=== PATIENT | female | born 1945 | race Caucasian/White ===

== ENCOUNTER 2017-02-28 09:21 | Inpatient (IN) | payer OTHER ==
[~2017-02-28] VITALS: Ht 157.5 cm; Wt 62.8 kg
[2017-02-28 09:45] LABS: BASOPHIL % 0.3 % (0-2); PLATELET COUNT 237 x10^3mcL (130-400)
[2017-02-28 09:48] LABS: RED CELL DISTRIBUTION WIDTH 16.2 % (11.5-14.5)
[2017-02-28] MEDS ORDERED: LASIX20 MG PO (09:59)
[2017-02-28] MEDS ORDERED: POTASSIUM CHLO10 MEQ PO (10:00)
[2017-02-28] MEDS ORDERED: SYNTHROID0.088 MG PO (10:00)
[2017-02-28] MEDS ORDERED: ASPIR 8181 MG PO (10:00)
[2017-02-28 10:05] LABS: ALKALINE PHOSPHATASE 74 U/L (46-116); ALT/SGPT 38 U/L (14-59); AST/SGOT 28 U/L (15-37); BILIRUBIN TOTAL 0.4 mg/dL (0.20-1.00); CALCIUM 6.1 mg/dL (8.5-10.1); CHLORIDE SERUM 103 mmol/L (98-107); CREATININE SERUM 0.6 mg/dL (0.6-1.0); GLUCOSE SERUM 103 mg/dL (74-106); SODIUM SERUM 144 mmol/L (136-145)
[2017-02-28 10:10] LABS: ALBUMIN 1.7 g/dL (3.4-5.0); TOTAL PROTEIN, SERUM 5.7 g/dL (6.4-8.2)
[2017-02-28 10:11] LABS: POTASSIUM SERUM 2.5 mmol/L (3.5-5.1)
[2017-02-28 10:12] LABS: CARBON DIOXIDE 40.3 mmol/L (21-32)
[2017-02-28 12:01] LABS: PHOSPHOROUS 3.1 mg/dL (2.5-4.9)
[2017-02-28 12:04] LABS: CHOLESTEROL/HDL RATIO 2.3; MAGNESIUM 0.5 mg/dL (1.8-2.4)
[2017-02-28 12:10] LABS: FREE T4 1.41 ng/dL (0.76-1.46); FREE THYROXINE INDEX 2.4 ug/dL (1.4-4.5); T4(THYROXINE) 6.4 ug/dL (4.7-13.3)
[2017-02-28 12:28] LABS: T3 TOTAL 0.47 ng/mL
[2017-02-28 13:23] LABS: microscopic required? YES; urine erythrocyte 1+ (NEGATIVE)
[2017-02-28 13:45] VITALS: Ht 157.5 cm; Wt 62.8 kg
[2017-02-28 14:58] VITALS: BP 133/76
[2017-02-28 17:47] LABS: CALCIUM 6.1 mg/dL (8.5-10.1); CREATININE SERUM 0.7 mg/dL (0.6-1.0); SODIUM SERUM 144 mmol/L (136-145)
[2017-02-28 18:04] LABS: CHLORIDE SERUM 102 mmol/L (98-107); GLUCOSE SERUM 119 mg/dL (74-106)
[2017-02-28 18:08] LABS: POTASSIUM SERUM 2.8 mmol/L (3.5-5.1)
[2017-02-28 18:22] VITALS: BP 111/51
[2017-02-28 21:54] VITALS: BP 113/48
[2017-03-01 06:05] VITALS: BP 120/67
[2017-03-01 06:55] LABS: BASOPHIL % 0.2 % (0-2); PLATELET COUNT 213 x10^3mcL (130-400)
[2017-03-01 07:13] LABS: CARBON DIOXIDE 37.2 mmol/L (21-32); CHLORIDE SERUM 104 mmol/L (98-107); CREATININE SERUM 0.7 mg/dL (0.6-1.0); GLUCOSE SERUM 167 mg/dL (74-106); MAGNESIUM 1.5 mg/dL (1.8-2.4); PHOSPHOROUS 3.9 mg/dL (2.5-4.9); POTASSIUM SERUM 3.6 mmol/L (3.5-5.1); SODIUM SERUM 145 mmol/L (136-145)
[2017-03-01 07:23] LABS: RED CELL DISTRIBUTION WIDTH 16.5 % (11.5-14.5)
[2017-03-01 07:54] LABS: CALCIUM 5.9 mg/dL (8.5-10.1)
[2017-03-01 10:00] VITALS: BP 104/48
[2017-03-01 14:00] VITALS: BP 111/53
[2017-03-01 18:42] VITALS: BP 121/46
[2017-03-01 21:36] VITALS: BP 117/46
[2017-03-02 05:49] VITALS: BP 137/51
[2017-03-02 06:17] LABS: PLATELET COUNT 261 x10^3mcL (130-400)
[2017-03-02 06:31] LABS: CARBON DIOXIDE 35.6 mmol/L (21-32); CHLORIDE SERUM 103 mmol/L (98-107); CREATININE SERUM 0.8 mg/dL (0.6-1.0); GLUCOSE SERUM 129 mg/dL (74-106); MAGNESIUM 1.8 mg/dL (1.8-2.4); PHOSPHOROUS 2.9 mg/dL (2.5-4.9); POTASSIUM SERUM 3.6 mmol/L (3.5-5.1); SODIUM SERUM 134 mmol/L (136-145)
[2017-03-02 06:46] LABS: BASOPHIL % 0 % (0-2); RED CELL DISTRIBUTION WIDTH 16.9 % (11.5-14.5)
[2017-03-02 13:03] VITALS: BP 143/47
[2017-03-02 21:38] VITALS: BP 161/50
[2017-03-03 05:30] VITALS: BP 123/53
[2017-03-03 10:00] VITALS: BP 126/61
[2017-03-03] MEDS ORDERED: FERG PO (13:07)
[2017-03-03] MEDS ORDERED: MONTELUKAST SOD10 M1 PO (13:09)
[2017-03-03] MEDS ORDERED: ALD25 PO (13:10)
[2017-03-03] MEDS ORDERED: LASIX40 MG PO (13:16)
[2017-03-03] MEDS ORDERED: LEVAQUIN750 MG PO (13:29)
[2017-03-03] MEDS ORDERED: CLINDAMYCIN HC300 MG PO (13:29)
[2017-03-03] MEDS ORDERED: LAC PO (13:30)
[2017-03-03 14:19] VITALS: BP 126/61
== END 2017-03-03 15:40 | disposition home or self-care (01) | DRG 177 ==
LOC: ED 09:21 → DU 10:23 → MU 10:23 → DU 13:30 → MU 03-03 11:26
PROVIDERS: Emergency Medicine; ADMIT Family Medicine
DX: J69.0 Pneumonitis due to inhalation of food and vomit (principal); E43 Unspecified severe protein-calorie malnutrition; N17.0 Acute kidney failure with tubular necrosis; D68.9 Coagulation defect, unspecified; R31.9 Hematuria, unspecified; E87.6 Hypokalemia; E83.51 Hypocalcemia; E03.9 Hypothyroidism, unspecified; E83.42 Hypomagnesemia; K76.0 Fatty (change of) liver, not elsewhere classified; D64.9 Anemia, unspecified; F17.210 Nicotine dependence, cigarettes, uncomplicated; Z68.25 Body mass index [BMI] 25.0-25.9, adult; Z85.3 Personal history of malignant neoplasm of breast; Z90.13 Acquired absence of bilateral breasts and nipples; Z98.84 Bariatric surgery status; Z79.82 Long term (current) use of aspirin
CPT/HCPCS: 83880; 84439; 94150; J0132; J0696; J1940; J2920; J3010; J3475; J3480; J3490; J7030; J7620; J7626; Q0092; Q9966

== ENCOUNTER 2017-05-23 07:23 | Emergency (ER) | payer OTHER ==
[~2017-05-23] VITALS: Ht 157.5 cm; Wt 53.1 kg
[~2017-05-23 07:23] MED LIST: ALD25 PO; ASPIR 8181 MG PO; CLINDAMYCIN HC300 MG PO; FERG PO; LAC PO; LASIX20 MG PO; LASIX40 MG PO; LEVAQUIN750 MG PO; MONTELUKAST SOD10 M1 PO; POTASSIUM CHLO10 MEQ PO; SYNTHROID0.088 MG PO
[2017-05-23 08:50] VITALS: BP 127/53
== END 2017-05-23 08:50 | disposition home or self-care (01) ==
LOC: ED 07:23
DX: L03.116 Cellulitis of left lower limb (principal); L03.115 Cellulitis of right lower limb; F17.200 Nicotine dependence, unspecified, uncomplicated; E03.9 Hypothyroidism, unspecified; Z88.0 Allergy status to penicillin; Z88.1 Allergy status to other antibiotic agents; Z88.2 Allergy status to sulfonamides
CPT/HCPCS: J0690

== ENCOUNTER 2017-05-26 05:22 | Emergency (ER) | payer OTHER ==
[2017-05-26 05:48] VITALS: BP 152/57
== END 2017-05-26 05:48 | disposition home or self-care (01) ==
LOC: ED 05:22
DX: L53.9 Erythematous condition, unspecified (principal); L03.116 Cellulitis of left lower limb; L03.115 Cellulitis of right lower limb

== ENCOUNTER 2017-05-29 05:06 | Emergency (ER) | payer OTHER ==
[2017-05-29 05:44] VITALS: BP 124/62
== END 2017-05-29 05:44 | disposition home or self-care (01) ==
LOC: ED 05:06
DX: L03.116 Cellulitis of left lower limb (principal); L03.115 Cellulitis of right lower limb

== ENCOUNTER 2017-07-05 06:54 | Emergency (ER) | payer OTHER ==
[2017-07-05 07:01] VITALS: BP 140/69
== END 2017-07-05 07:45 | disposition home or self-care (01) ==
LOC: ED 06:54
DX: L98.499 Non-pressure chronic ulcer of skin of other sites with unspecified severity (principal); L03.314 Cellulitis of groin; E03.9 Hypothyroidism, unspecified; Z90.49 Acquired absence of other specified parts of digestive tract; Z90.710 Acquired absence of both cervix and uterus; Z88.0 Allergy status to penicillin; Z88.2 Allergy status to sulfonamides; Z88.1 Allergy status to other antibiotic agents
CPT/HCPCS: J1885

== ENCOUNTER 2017-08-07 06:13 | Inpatient (IN) | payer OTHER ==
[~2017-08-07] VITALS: Ht 157.5 cm; Wt 53.3 kg
[2017-08-07 08:32] LABS: BASOPHIL % 0.4 % (0-2); PLATELET COUNT 261 x10^3mcL (130-400)
[2017-08-07 08:42] LABS: UA SPECIFIC GRAVITY 1.025 (1.005-1.035); microscopic required? YES; urine erythrocyte NEGATIVE (NEGATIVE)
[2017-08-07 08:46] LABS: CALCIUM 8.3 mg/dL (8.5-10.1); CARBON DIOXIDE 27.1 mmol/L (21-32); CHLORIDE SERUM 105 mmol/L (98-107); CREATININE SERUM 0.5 mg/dL (0.6-1.0); GLUCOSE SERUM 74 mg/dL (74-106); RED CELL DISTRIBUTION WIDTH 16.1 % (11.5-14.5); SODIUM SERUM 140 mmol/L (136-145)
[2017-08-07 08:54] LABS: ALBUMIN 2.2 g/dL (3.4-5.0); ALKALINE PHOSPHATASE 83 U/L (46-116); ALT/SGPT 24 U/L (14-59); AST/SGOT 14 U/L (15-37); BILIRUBIN TOTAL 0.2 mg/dL (0.20-1.00); C REACTIVE PROTEIN 2.8 mg/dL (<=0.9); TOTAL PROTEIN, SERUM 6.5 g/dL (6.4-8.2)
[2017-08-07 09:08] LABS: T3 TOTAL 0.58 ng/mL
[2017-08-07 09:28] LABS: FREE T4 1.39 ng/dL (0.76-1.46); FREE THYROXINE INDEX 3.4 ug/dL (1.4-4.5); T4(THYROXINE) 9.1 ug/dL (4.7-13.3)
[2017-08-07 09:54] LABS: CK-MB 1.9 ng/mL (0-3.6)
[2017-08-07] MEDS ORDERED: LEVOTHYROXINE0.2 M2 PO (10:26)
[2017-08-07] MEDS ORDERED: FERROUS SULFAT325 M2 PO (10:26)
[2017-08-07] MEDS ORDERED: POTASSIUM CHLO10 MEQ PO (10:26)
[2017-08-07] MEDS ORDERED: FOLBIC RF1 TAB PO (10:27)
[2017-08-07] MEDS ORDERED: FOLGARD1 TAB PO (11:02)
[2017-08-07 11:36] LABS: CHOLESTEROL/HDL RATIO 2.2; MAGNESIUM 1.6 mg/dL (1.8-2.4); PHOSPHOROUS 3.6 mg/dL (2.5-4.9)
[2017-08-07 12:01] LABS: IRON 23 ug/dL (50-170); TOTAL IRON BINDING CAPACITY 223 ug/dL (250-450)
[2017-08-07 12:12] LABS: RED BLOOD CELLS 3.5 M/mm3 (4.10-5.10)
[2017-08-07 12:16] LABS: ERYTHROCYTE SED RATE 47 mm/hr (0-30)
[2017-08-07 13:33] VITALS: BP 154/56
[2017-08-07 14:01] VITALS: BP 162/69
[2017-08-07 17:33] VITALS: BP 157/60
[2017-08-08 05:47] VITALS: BP 137/56
[2017-08-08 06:36] LABS: CALCIUM 7.7 mg/dL (8.5-10.1); CARBON DIOXIDE 28.2 mmol/L (21-32); CHLORIDE SERUM 107 mmol/L (98-107); CREATININE SERUM 0.6 mg/dL (0.6-1.0); GLUCOSE SERUM 84 mg/dL (74-106); MAGNESIUM 1.7 mg/dL (1.8-2.4); PHOSPHOROUS 3.4 mg/dL (2.5-4.9); POTASSIUM SERUM 4.5 mmol/L (3.5-5.1); SODIUM SERUM 140 mmol/L (136-145)
[2017-08-08 06:44] LABS: BASOPHIL % 0.3 % (0-2); PLATELET COUNT 230 x10^3mcL (130-400)
[2017-08-08 06:50] LABS: RED CELL DISTRIBUTION WIDTH 16.3 % (11.5-14.5)
[2017-08-08 09:50] VITALS: BP 150/67
[2017-08-08 13:57] VITALS: BP 153/54
[2017-08-08 17:24] VITALS: BP 169/62
[2017-08-08 21:34] VITALS: BP 145/58
[2017-08-09 05:16] VITALS: BP 152/64
[2017-08-09 09:14] LABS: BASOPHIL % 0.2 % (0-2); PLATELET COUNT 252 x10^3mcL (130-400); RED CELL DISTRIBUTION WIDTH 16.1 % (11.5-14.5)
[2017-08-09 09:23] LABS: CARBON DIOXIDE 30.2 mmol/L (21-32); CHLORIDE SERUM 104 mmol/L (98-107); CREATININE SERUM 0.6 mg/dL (0.6-1.0); GLUCOSE SERUM 98 mg/dL (74-106); MAGNESIUM 1.4 mg/dL (1.8-2.4); POTASSIUM SERUM 3.8 mmol/L (3.5-5.1); SODIUM SERUM 141 mmol/L (136-145)
[2017-08-09 10:00] VITALS: BP 143/61
[2017-08-09] MEDS ORDERED: LAC PO (10:48)
[2017-08-09] MEDS ORDERED: CLEOCIN HCL300 MG PO ×2 (10:49→11:28)
[2017-08-09] MEDS ORDERED: DIFLUCAN150 MG PO (10:50)
[2017-08-09] MEDS ORDERED: CIPRO500 MG PO (11:11)
[2017-08-09] MEDS ORDERED: FERROUS SULFAT324 M1 PO (11:25)
[2017-08-09] MEDS ORDERED: SULFAMETH/TRIME1 TA3 PO (11:52)
[2017-08-09] MEDS ORDERED: BENADRYL ALLERG25 M1 PO (12:00)
[2017-08-09 12:21] VITALS: BP 143/61
== END 2017-08-09 15:14 | disposition home or self-care (01) | DRG 602 ==
LOC: ED 06:13 → DU 10:21
PROVIDERS: Specialist; Student in an Organized Health Care Education/Training Program; ADMIT Family Medicine
DX: L03.315 Cellulitis of perineum (principal); N17.0 Acute kidney failure with tubular necrosis; E43 Unspecified severe protein-calorie malnutrition; B37.3 Candidiasis of vulva and vagina; N76.2 Acute vulvitis; M62.50 Muscle wasting and atrophy, not elsewhere classified, unspecified site; E83.42 Hypomagnesemia; J44.9 Chronic obstructive pulmonary disease, unspecified; D64.9 Anemia, unspecified; E83.51 Hypocalcemia; I34.0 Nonrheumatic mitral (valve) insufficiency; Z68.21 Body mass index [BMI] 21.0-21.9, adult; F17.210 Nicotine dependence, cigarettes, uncomplicated
CPT/HCPCS: 83880; 84439; 90658; J1885; J3475; J3490; J7030; Q0092

== ENCOUNTER 2018-09-26 22:24 | Inpatient (IN) | payer OTHER ==
[~2018-09-26] VITALS: Ht 157.5 cm; Wt 57.6 kg
[~2018-09-26 22:24] MED LIST changes: +BENADRYL ALLERG25 M1 PO; +CIPRO500 MG PO; +CLEOCIN HCL300 MG PO; +DIFLUCAN150 MG PO; +FERROUS SULFAT324 M1 PO; +FERROUS SULFAT325 M2 PO; +FOLBIC RF1 TAB PO; +FOLGARD1 TAB PO; +LEVOTHYROXINE0.2 M2 PO; +SULFAMETH/TRIME1 TA3 PO
[2018-09-26 23:55] LABS: BASOPHIL % 0.2 % (0-2); PLATELET COUNT 262 x10^3mcL (130-400)
[2018-09-27] VITALS (7 sets, daily range): BP systolic 97–138; BP diastolic 32–53
[2018-09-27 00:02] LABS: RED CELL DISTRIBUTION WIDTH 17.6 % (11.5-14.5)
[2018-09-27 00:18] LABS: ALKALINE PHOSPHATASE 140 U/L (46-116); ALT/SGPT 42 U/L (14-59); AST/SGOT 37 U/L (15-37); BILIRUBIN TOTAL 0.4 mg/dL (0.20-1.00); CALCIUM 6.5 mg/dL (8.5-10.1); CARBON DIOXIDE 35.3 mmol/L (21-32); CHLORIDE SERUM 98 mmol/L (98-107); CREATININE SERUM 1.3 mg/dL (0.6-1.0); GLUCOSE SERUM 112 mg/dL (74-106); SODIUM SERUM 140 mmol/L (136-145)
[2018-09-27 00:32] LABS: POTASSIUM SERUM 2.7 mmol/L (3.5-5.1); TOTAL PROTEIN, SERUM 4.8 g/dL (6.4-8.2)
[2018-09-27 17:07] LABS: UA SPECIFIC GRAVITY 1.025 (1.005-1.035); microscopic required? YES; urine erythrocyte 3+ (NEGATIVE)
[2018-09-28 04:37] VITALS: BP 106/46
[2018-09-28 06:29] LABS: BASOPHIL % 0.1 % (0-2); PLATELET COUNT 196 x10^3mcL (130-400)
[2018-09-28 06:40] LABS: CALCIUM 6.1 mg/dL (8.5-10.1); CARBON DIOXIDE 36.9 mmol/L (21-32); CHLORIDE SERUM 103 mmol/L (98-107); CREATININE SERUM 1.1 mg/dL (0.6-1.0); GLUCOSE SERUM 101 mg/dL (74-106); RED CELL DISTRIBUTION WIDTH 17.9 % (11.5-14.5); SODIUM SERUM 143 mmol/L (136-145)
[2018-09-28 07:03] LABS: POTASSIUM SERUM 2.8 mmol/L (3.5-5.1)
[2018-09-28 07:54] VITALS: BP 116/77
[2018-09-28 14:25] VITALS: BP 94/36
[2018-09-28 17:07] VITALS: BP 94/36
[2018-09-28 20:42] VITALS: BP 96/39
[2018-09-29 05:17] VITALS: BP 115/53
[2018-09-29 06:50] LABS: PLATELET COUNT 161 x10^3mcL (130-400)
[2018-09-29 06:56] LABS: BASOPHIL % 0 % (0-2); RED CELL DISTRIBUTION WIDTH 18.1 % (11.5-14.5)
[2018-09-29 07:01] LABS: CALCIUM 6.2 mg/dL (8.5-10.1); CARBON DIOXIDE 37.4 mmol/L (21-32); CHLORIDE SERUM 104 mmol/L (98-107); CREATININE SERUM 1.1 mg/dL (0.6-1.0); GLUCOSE SERUM 89 mg/dL (74-106); POTASSIUM SERUM 4.6 mmol/L (3.5-5.1); SODIUM SERUM 144 mmol/L (136-145)
[2018-09-29 10:53] VITALS: BP 128/50
[2018-09-29 15:54] VITALS: BP 106/51
[2018-09-29 19:17] VITALS: Ht 157.5 cm; Wt 57.6 kg
[2018-09-29 19:20] VITALS: BP 106/55
[2018-09-29 19:35] VITALS: BP 106/55
== END 2018-09-29 20:28 | disposition short-term general hospital (02) | DRG 919 ==
LOC: ED 22:24 → DU 09-27 01:27
PROVIDERS: Emergency Medicine; ADMIT Internal Medicine
DX: T81.31XA Disruption of external operation (surgical) wound, not elsewhere classified, initial encounter (principal); E43 Unspecified severe protein-calorie malnutrition; E87.2 Acidosis; T81.49XA Infection following a procedure, other surgical site, initial encounter; L89.329 Pressure ulcer of left buttock, unspecified stage; L89.319 Pressure ulcer of right buttock, unspecified stage; J44.9 Chronic obstructive pulmonary disease, unspecified; E87.6 Hypokalemia; M19.90 Unspecified osteoarthritis, unspecified site; Z85.3 Personal history of malignant neoplasm of breast; R41.81 Age-related cognitive decline; Z68.20 Body mass index [BMI] 20.0-20.9, adult; Y83.4 Other reconstructive surgery as the cause of abnormal reaction of the patient, or of later complication, without mention of misadventure at the time of the procedure; Y92.009 Unspecified place in unspecified non-institutional (private) residence as the place of occurrence of the external cause
CPT/HCPCS: 83880; 87804; J1644; J1956; J2020; J2270; J2543; J2550; J3370; J3490; J7030; J7040; J7050; J7620; Q0163

== ENCOUNTER 2019-02-23 18:14 | Inpatient (IN) | payer OTHER ==
[~2019-02-23] VITALS: Ht 157.5 cm; Wt 40.0 kg
[2019-02-23 19:18] LABS: PLATELET COUNT 301 x10^3mcL (130-400)
[2019-02-23 19:24] LABS: ALKALINE PHOSPHATASE 148 U/L (46-116); ALT/SGPT 31 U/L (14-59); AST/SGOT 9 U/L (15-37); BILIRUBIN TOTAL 0.3 mg/dL (0.20-1.00); CALCIUM 7.9 mg/dL (8.5-10.1); CARBON DIOXIDE 24.6 mmol/L (21-32); CHLORIDE SERUM 102 mmol/L (98-107); CREATININE SERUM 2.2 mg/dL (0.6-1.0); GLUCOSE SERUM 97 mg/dL (74-106); RED CELL DISTRIBUTION WIDTH 16.5 % (11.5-14.5); SODIUM SERUM 137 mmol/L (136-145); TOTAL PROTEIN, SERUM 7.6 g/dL (6.4-8.2)
[2019-02-23 19:25] LABS: ALBUMIN 2.1 g/dL (3.4-5.0)
[2019-02-23 19:27] LABS: POTASSIUM SERUM 2.1 mmol/L (3.5-5.1)
[2019-02-23 20:45] LABS: MONOCYTE 6 % (0-7); SEGMENTED NEUTROPHILS 90 % (37-75)
[2019-02-23 20:46] LABS: PLATELET MORPHOLOGY PLATELETS NORMAL; rbc morphology (normal/abnorm) ABNORMAL (NORMAL)
[2019-02-23] MEDS ORDERED: FUROSEMIDE20 MG (20:56)
[2019-02-23] MEDS ORDERED: OXYCODONE HYDROC5 M2 (20:57)
[2019-02-23 23:39] VITALS: BP 97/64
[2019-02-24] VITALS (7 sets, daily range): BP systolic 91–126; BP diastolic 34–64; Ht 157.5 cm; Wt 40.0 kg
[2019-02-24 07:04] LABS: CALCIUM 7.4 mg/dL (8.5-10.1); CARBON DIOXIDE 16.8 mmol/L (21-32); CHLORIDE SERUM 108 mmol/L (98-107); GLUCOSE SERUM 80 mg/dL (74-106); SODIUM SERUM 134 mmol/L (136-145)
[2019-02-24 07:27] LABS: PLATELET COUNT 242 x10^3mcL (130-400)
[2019-02-24 07:28] LABS: BASOPHIL % 0 % (0-2); RED CELL DISTRIBUTION WIDTH 16.8 % (11.5-14.5)
[2019-02-24 08:45] LABS: microscopic required? YES; urine erythrocyte 3+ (NEGATIVE)
[2019-02-25 06:05] VITALS: BP 112/44
[2019-02-25 06:24] LABS: ALKALINE PHOSPHATASE 93 U/L (46-116); ALT/SGPT 30 U/L (14-59); AST/SGOT 9 U/L (15-37); BILIRUBIN TOTAL 0.2 mg/dL (0.20-1.00); CALCIUM 6.8 mg/dL (8.5-10.1); CARBON DIOXIDE 19.2 mmol/L (21-32); CHLORIDE SERUM 110 mmol/L (98-107); CREATININE SERUM 1.5 mg/dL (0.6-1.0); GLUCOSE SERUM 91 mg/dL (74-106); MAGNESIUM 1.3 mg/dL (1.8-2.4); PHOSPHOROUS 2.3 mg/dL (2.5-4.9); SODIUM SERUM 142 mmol/L (136-145)
[2019-02-25 06:39] LABS: ALBUMIN 2.1 g/dL (3.4-5.0); TOTAL PROTEIN, SERUM 5.8 g/dL (6.4-8.2)
[2019-02-25 06:40] LABS: POTASSIUM SERUM 2.9 mmol/L (3.5-5.1)
[2019-02-25 07:55] LABS: PLATELET COUNT 195 x10^3mcL (130-400)
[2019-02-25 07:56] LABS: BASOPHIL % 0 % (0-2); RED CELL DISTRIBUTION WIDTH 16.5 % (11.5-14.5)
[2019-02-25 08:46] VITALS: BP 120/46
[2019-02-25 15:00] VITALS: BP 111/37
[2019-02-25 17:25] VITALS: BP 114/56
[2019-02-25 20:12] VITALS: BP 109/39
[2019-02-26 04:05] VITALS: BP 118/40
[2019-02-26 07:04] LABS: ALKALINE PHOSPHATASE 81 U/L (46-116); ALT/SGPT 15 U/L (14-59); AST/SGOT 5 U/L (15-37); CALCIUM 7.4 mg/dL (8.5-10.1); CARBON DIOXIDE 15.2 mmol/L (21-32); CHLORIDE SERUM 114 mmol/L (98-107); CREATININE SERUM 1.1 mg/dL (0.6-1.0); GLUCOSE SERUM 91 mg/dL (74-106); PHOSPHOROUS 1.9 mg/dL (2.5-4.9); POTASSIUM SERUM 3.2 mmol/L (3.5-5.1); SODIUM SERUM 144 mmol/L (136-145); TOTAL PROTEIN, SERUM 6.2 g/dL (6.4-8.2)
[2019-02-26 07:13] LABS: ALBUMIN 2.7 g/dL (3.4-5.0)
[2019-02-26 09:18] VITALS: BP 129/44
[2019-02-26 14:01] VITALS: BP 125/49
[2019-02-26 17:38] VITALS: BP 110/45
[2019-02-26 19:35] VITALS: BP 106/47
[2019-02-27 04:39] VITALS: BP 125/50
[2019-02-27 06:50] LABS: CARBON DIOXIDE 23.2 mmol/L (21-32); CHLORIDE SERUM 110 mmol/L (98-107); CREATININE SERUM 1.1 mg/dL (0.6-1.0); GLUCOSE SERUM 92 mg/dL (74-106); POTASSIUM SERUM 3.7 mmol/L (3.5-5.1); SODIUM SERUM 141 mmol/L (136-145)
[2019-02-27 08:00] LABS: BASOPHIL % 0.2 % (0-2); PLATELET COUNT 202 x10^3mcL (130-400)
[2019-02-27 08:25] LABS: RED CELL DISTRIBUTION WIDTH 15.4 % (11.5-14.5)
[2019-02-27 09:29] VITALS: BP 115/61
[2019-02-27 14:03] VITALS: BP 115/61
[2019-02-27 14:27] VITALS: BP 102/39
[2019-02-27 18:25] VITALS: BP 106/38
[2019-02-27 20:34] VITALS: BP 132/51
[2019-02-28 05:40] VITALS: BP 120/50
[2019-02-28 07:36] LABS: ALKALINE PHOSPHATASE 75 U/L (46-116); ALT/SGPT 13 U/L (14-59); AST/SGOT 4 U/L (15-37); CALCIUM 7.1 mg/dL (8.5-10.1); CARBON DIOXIDE 21.8 mmol/L (21-32); CHLORIDE SERUM 111 mmol/L (98-107); GLUCOSE SERUM 77 mg/dL (74-106); MAGNESIUM 1.5 mg/dL (1.8-2.4); PHOSPHOROUS 1.9 mg/dL (2.5-4.9); POTASSIUM SERUM 4.1 mmol/L (3.5-5.1); SODIUM SERUM 141 mmol/L (136-145)
[2019-02-28 07:39] LABS: ALBUMIN 2.2 g/dL (3.4-5.0)
[2019-02-28 08:43] VITALS: BP 112/50
[2019-02-28 09:03] LABS: BASOPHIL % 0.1 % (0-2); PLATELET COUNT 200 x10^3mcL (130-400)
[2019-02-28 09:06] LABS: RED CELL DISTRIBUTION WIDTH 16.6 % (11.5-14.5)
[2019-02-28 12:44] VITALS: BP 116/44
[2019-02-28 20:36] VITALS: BP 112/41
[2019-03-01 05:06] VITALS: BP 116/37
[2019-03-01 06:16] LABS: BASOPHIL % 0.3 % (0-2); PLATELET COUNT 194 x10^3mcL (130-400)
[2019-03-01 07:20] LABS: ALBUMIN 2.2 g/dL (3.4-5.0); CALCIUM 7.2 mg/dL (8.5-10.1); CARBON DIOXIDE 22.3 mmol/L (21-32); CHLORIDE SERUM 110 mmol/L (98-107); GLUCOSE SERUM 83 mg/dL (74-106); POTASSIUM SERUM 5.1 mmol/L (3.5-5.1); SODIUM SERUM 140 mmol/L (136-145); TOTAL PROTEIN, SERUM 5.6 g/dL (6.4-8.2)
[2019-03-01 07:21] LABS: ALKALINE PHOSPHATASE 81 U/L (46-116); ALT/SGPT 24 U/L (14-59); AST/SGOT 8 U/L (15-37); BILIRUBIN TOTAL 0.2 mg/dL (0.20-1.00); MAGNESIUM 1.3 mg/dL (1.8-2.4); PHOSPHOROUS 3.4 mg/dL (2.5-4.9)
[2019-03-01 07:47] LABS: RED CELL DISTRIBUTION WIDTH 16.9 % (11.5-14.5)
[2019-03-01 08:53] VITALS: BP 117/48
[2019-03-01 14:29] VITALS: BP 113/40
[2019-03-01 17:24] VITALS: BP 114/43
[2019-03-01 21:15] VITALS: BP 107/55
[2019-03-02 05:53] VITALS: BP 125/51
[2019-03-02 09:25] VITALS: BP 128/88
[2019-03-02 10:39] LABS: ALKALINE PHOSPHATASE 78 U/L (46-116); ALT/SGPT 24 U/L (14-59); AST/SGOT 10 U/L (15-37); BILIRUBIN TOTAL 0.2 mg/dL (0.20-1.00); CALCIUM 7.1 mg/dL (8.5-10.1); CARBON DIOXIDE 25.4 mmol/L (21-32); CHLORIDE SERUM 108 mmol/L (98-107); GLUCOSE SERUM 104 mg/dL (74-106); POTASSIUM SERUM 4.2 mmol/L (3.5-5.1); SODIUM SERUM 138 mmol/L (136-145)
[2019-03-02 10:47] LABS: ALBUMIN 2.2 g/dL (3.4-5.0); TOTAL PROTEIN, SERUM 5.8 g/dL (6.4-8.2)
[2019-03-02 10:53] LABS: BASOPHIL % 0.1 % (0-2); PLATELET COUNT 219 x10^3mcL (130-400)
[2019-03-02 12:20] VITALS: BP 134/45
[2019-03-02 16:20] VITALS: BP 132/40
[2019-03-02 21:18] VITALS: BP 118/40
[2019-03-03 05:53] VITALS: BP 117/40
[2019-03-03 08:23] VITALS: BP 132/64
[2019-03-03 12:46] VITALS: BP 126/42
[2019-03-03 17:08] VITALS: BP 114/41
[2019-03-03 19:54] VITALS: BP 100/56
[2019-03-04 05:58] VITALS: BP 113/46
[2019-03-04 06:49] LABS: CALCIUM 7.6 mg/dL (8.5-10.1); CARBON DIOXIDE 24.1 mmol/L (21-32); CHLORIDE SERUM 110 mmol/L (98-107); CREATININE SERUM 0.8 mg/dL (0.6-1.0); GLUCOSE SERUM 77 mg/dL (74-106); POTASSIUM SERUM 4.7 mmol/L (3.5-5.1); SODIUM SERUM 141 mmol/L (136-145)
[2019-03-04 09:15] VITALS: BP 113/41
[2019-03-04 11:01] LABS: BASOPHIL % 0.3 % (0-2); PLATELET COUNT 225 x10^3mcL (130-400)
[2019-03-04 11:23] LABS: RED CELL DISTRIBUTION WIDTH 16.9 % (11.5-14.5)
[2019-03-04 12:52] VITALS: BP 116/48
[2019-03-04 16:14] VITALS: BP 122/42
[2019-03-04 21:46] VITALS: BP 143/51
[2019-03-05 04:59] VITALS: BP 138/50
[2019-03-05 06:31] LABS: PLATELET COUNT 242 x10^3mcL (130-400)
[2019-03-05 06:37] LABS: RED CELL DISTRIBUTION WIDTH 15.9 % (11.5-14.5)
[2019-03-05 06:58] LABS: CALCIUM 7.9 mg/dL (8.5-10.1); CARBON DIOXIDE 19.5 mmol/L (21-32); CHLORIDE SERUM 109 mmol/L (98-107); CREATININE SERUM 0.8 mg/dL (0.6-1.0); GLUCOSE SERUM 113 mg/dL (74-106); MAGNESIUM 1.2 mg/dL (1.8-2.4); POTASSIUM SERUM 3.7 mmol/L (3.5-5.1); SODIUM SERUM 139 mmol/L (136-145)
[2019-03-05 07:39] VITALS: BP 118/51
[2019-03-05 08:45] VITALS: BP 118/51
[2019-03-05 14:31] LABS: BAND NEUTROPHIL 0 % (0-10); BASOPHIL 0 % (0-2); MONOCYTE 4 % (0-7); SEGMENTED NEUTROPHILS 91 % (37-75)
[2019-03-05 14:32] LABS: PLATELET MORPHOLOGY PLATELETS NORMAL; rbc morphology (normal/abnorm) ABNORMAL (NORMAL)
[2019-03-05 17:00] VITALS: BP 105/41
[2019-03-05 20:18] VITALS: BP 129/50
[2019-03-06 06:42] VITALS: BP 125/51
[2019-03-06 07:30] LABS: BASOPHIL % 0.4 % (0-2); PLATELET COUNT 264 x10^3mcL (130-400)
[2019-03-06 07:50] LABS: CALCIUM 7.8 mg/dL (8.5-10.1); CARBON DIOXIDE 22.4 mmol/L (21-32); CHLORIDE SERUM 109 mmol/L (98-107); CREATININE SERUM 0.8 mg/dL (0.6-1.0); GLUCOSE SERUM 87 mg/dL (74-106); SODIUM SERUM 141 mmol/L (136-145)
[2019-03-06 09:47] VITALS: BP 129/50
[2019-03-06 17:50] VITALS: BP 128/51
[2019-03-06 21:34] VITALS: BP 129/50
[2019-03-07 06:18] VITALS: BP 130/59
[2019-03-07 07:36] VITALS: BP 123/45
[2019-03-07 16:46] VITALS: BP 127/42
[2019-03-07 21:08] VITALS: BP 131/45
[2019-03-08 04:53] VITALS: BP 118/53
[2019-03-08 11:15] VITALS: BP 128/66
[2019-03-08 15:17] VITALS: BP 128/66
[2019-03-08 19:03] VITALS: BP 126/41
[2019-03-08 20:11] VITALS: BP 128/47
[2019-03-09 04:18] VITALS: BP 131/59
[2019-03-09 10:41] VITALS: BP 142/52
[2019-03-09 15:57] VITALS: BP 111/37
[2019-03-09 21:42] VITALS: BP 127/58
[2019-03-10 04:09] VITALS: BP 156/90
[2019-03-10 06:20] LABS: BASOPHIL % 0.4 % (0-2); PLATELET COUNT 216 x10^3mcL (130-400)
[2019-03-10 06:46] LABS: RED CELL DISTRIBUTION WIDTH 16.8 % (11.5-14.5)
[2019-03-10 06:56] LABS: CALCIUM 7.9 mg/dL (8.5-10.1); CARBON DIOXIDE 24.4 mmol/L (21-32); CHLORIDE SERUM 109 mmol/L (98-107); CREATININE SERUM 0.9 mg/dL (0.6-1.0); GLUCOSE SERUM 76 mg/dL (74-106); POTASSIUM SERUM 4.2 mmol/L (3.5-5.1); SODIUM SERUM 142 mmol/L (136-145)
[2019-03-10 09:03] VITALS: BP 145/35
[2019-03-10 18:04] VITALS: BP 133/49
[2019-03-10 21:01] VITALS: BP 133/49
[2019-03-11 05:21] VITALS: BP 127/52
[2019-03-11 08:35] VITALS: BP 125/71
[2019-03-11 17:46] VITALS: BP 134/46
[2019-03-11 20:50] VITALS: BP 136/47
[2019-03-12 04:38] VITALS: BP 145/52
[2019-03-12 08:01] VITALS: BP 136/59
[2019-03-12 11:53] VITALS: BP 138/60
[2019-03-12 16:22] VITALS: BP 130/63
[2019-03-12 19:44] VITALS: BP 127/49
[2019-03-13 05:59] VITALS: BP 126/50; BP 146/101
[2019-03-13 08:00] VITALS: BP 115/61
[2019-03-13 11:50] VITALS: BP 118/63
[2019-03-13 17:02] VITALS: BP 153/58
[2019-03-13 21:27] VITALS: BP 149/57
[2019-03-14 06:18] VITALS: BP 140/53
[2019-03-14 07:21] LABS: ALKALINE PHOSPHATASE 70 U/L (46-116); ALT/SGPT 18 U/L (14-59); AST/SGOT 14 U/L (15-37); BILIRUBIN TOTAL 0.16 mg/dL (0.20-1.00); CALCIUM 8.2 mg/dL (8.5-10.1); CARBON DIOXIDE 23.5 mmol/L (21-32); CHLORIDE SERUM 113 mmol/L (98-107); CREATININE SERUM 0.7 mg/dL (0.6-1.0); GLUCOSE SERUM 80 mg/dL (74-106); POTASSIUM SERUM 3.9 mmol/L (3.5-5.1); SODIUM SERUM 150 mmol/L (136-145)
[2019-03-14 07:24] LABS: ALBUMIN 1.9 g/dL (3.4-5.0)
[2019-03-14 07:44] VITALS: BP 134/51
[2019-03-14 08:23] LABS: BASOPHIL % 0.4 % (0-2); PLATELET COUNT 221 x10^3mcL (130-400)
[2019-03-14 08:35] LABS: RED CELL DISTRIBUTION WIDTH 16.9 % (11.5-14.5)
[2019-03-14 20:55] VITALS: BP 136/52
[2019-03-14 23:50] VITALS: BP 145/57
[2019-03-15 05:12] VITALS: BP 146/63
[2019-03-15 06:06] VITALS: BP 149/56
[2019-03-15 09:27] VITALS: BP 152/63
[2019-03-15 21:02] VITALS: BP 146/62
[2019-03-16 05:26] VITALS: BP 130/74
[2019-03-16 07:47] VITALS: BP 144/47
[2019-03-16 15:39] VITALS: BP 150/54
[2019-03-16 21:08] VITALS: BP 155/50
[2019-03-17 03:45] VITALS: BP 143/53
[2019-03-17 08:19] VITALS: BP 143/69
[2019-03-17 10:09] LABS: BASOPHIL % 0.3 % (0-2); PLATELET COUNT 261 x10^3mcL (130-400)
[2019-03-17 10:13] LABS: RED CELL DISTRIBUTION WIDTH 16.2 % (11.5-14.5)
[2019-03-17 10:30] LABS: ALKALINE PHOSPHATASE 79 U/L (46-116); ALT/SGPT 20 U/L (14-59); AST/SGOT 9 U/L (15-37); BILIRUBIN TOTAL 0.11 mg/dL (0.20-1.00); CALCIUM 7.9 mg/dL (8.5-10.1); CARBON DIOXIDE 24.3 mmol/L (21-32); CHLORIDE SERUM 110 mmol/L (98-107); CREATININE SERUM 0.8 mg/dL (0.6-1.0); GLUCOSE SERUM 98 mg/dL (74-106); POTASSIUM SERUM 3.5 mmol/L (3.5-5.1); SODIUM SERUM 144 mmol/L (136-145)
[2019-03-17 10:33] LABS: ALBUMIN 1.8 g/dL (3.4-5.0)
[2019-03-17 11:56] VITALS: BP 140/73
[2019-03-17 12:46] VITALS: BP 140/73
[2019-03-17 16:42] VITALS: BP 150/46
[2019-03-17 21:24] VITALS: BP 131/49
[2019-03-18 05:56] VITALS: BP 122/48
[2019-03-18 05:59] VITALS: BP 122/48
[2019-03-18 07:25] VITALS: BP 141/53
[2019-03-18 18:28] VITALS: BP 170/58
[2019-03-18 19:23] VITALS: BP 147/64
[2019-03-18 21:45] VITALS: BP 148/49
[2019-03-19 06:59] VITALS: BP 123/50
[2019-03-19 09:45] VITALS: BP 132/74
[2019-03-19 17:33] VITALS: BP 128/78
[2019-03-19 20:19] VITALS: BP 134/62
[2019-03-20 05:33] VITALS: BP 145/59
[2019-03-20 09:41] VITALS: BP 135/86
[2019-03-20 12:50] VITALS: BP 135/86
[2019-03-20 17:19] VITALS: BP 132/82
[2019-03-20 22:02] VITALS: BP 134/47
[2019-03-21 05:20] VITALS: BP 147/61
[2019-03-21 08:50] VITALS: BP 139/51
[2019-03-21 17:30] VITALS: BP 166/57
[2019-03-21 20:29] VITALS: BP 163/71
[2019-03-22 05:21] VITALS: BP 161/63
[2019-03-22 06:12] LABS: CALCIUM 7.6 mg/dL (8.5-10.1); CARBON DIOXIDE 24.3 mmol/L (21-32); CHLORIDE SERUM 108 mmol/L (98-107); CREATININE SERUM 0.7 mg/dL (0.6-1.0); GLUCOSE SERUM 96 mg/dL (74-106)
[2019-03-22 06:18] LABS: SODIUM SERUM 144 mmol/L (136-145)
[2019-03-22 06:19] LABS: BASOPHIL % 0.2 % (0-2); PLATELET COUNT 246 x10^3mcL (130-400); POTASSIUM SERUM 2.3 mmol/L (3.5-5.1)
[2019-03-22 06:35] LABS: RED CELL DISTRIBUTION WIDTH 15.4 % (11.5-14.5)
[2019-03-22 08:26] VITALS: BP 138/60
[2019-03-22 12:03] VITALS: BP 150/68
[2019-03-22 18:45] VITALS: BP 146/68
[2019-03-22 19:28] VITALS: BP 148/54
[2019-03-23 06:12] VITALS: BP 146/47
[2019-03-23 06:36] LABS: BASOPHIL % 0.2 % (0-2); PLATELET COUNT 274 x10^3mcL (130-400)
[2019-03-23 06:59] LABS: CALCIUM 7.3 mg/dL (8.5-10.1); CARBON DIOXIDE 25.6 mmol/L (21-32); CHLORIDE SERUM 109 mmol/L (98-107); CREATININE SERUM 0.7 mg/dL (0.6-1.0); GLUCOSE SERUM 97 mg/dL (74-106); SODIUM SERUM 144 mmol/L (136-145)
[2019-03-23 07:26] LABS: RED CELL DISTRIBUTION WIDTH 16.2 % (11.5-14.5)
[2019-03-23 09:08] VITALS: BP 146/47
[2019-03-23 09:14] VITALS: BP 143/65
[2019-03-23 17:48] VITALS: BP 143/65
== END 2019-03-23 18:54 | disposition short-term general hospital (02) | DRG 177 ==
LOC: ED 18:14 → DU 20:55 → MU 20:55 → DU 22:17 → MU 03-04 16:22
PROVIDERS: Emergency Medicine; Internal Medicine; ADMIT Internal Medicine
DX: J15.1 Pneumonia due to Pseudomonas (principal); E43 Unspecified severe protein-calorie malnutrition; N17.9 Acute kidney failure, unspecified; Z68.1 Body mass index [BMI] 19.9 or less, adult; N39.0 Urinary tract infection, site not specified; K52.9 Noninfective gastroenteritis and colitis, unspecified; J98.4 Other disorders of lung; B96.29 Other Escherichia coli [E. coli] as the cause of diseases classified elsewhere; E86.0 Dehydration; L89.320 Pressure ulcer of left buttock, unstageable; E87.6 Hypokalemia; J44.9 Chronic obstructive pulmonary disease, unspecified; E03.9 Hypothyroidism, unspecified; F12.10 Cannabis abuse, uncomplicated; N18.9 Chronic kidney disease, unspecified; Z93.3 Colostomy status; Z98.84 Bariatric surgery status; Z87.891 Personal history of nicotine dependence; Z85.3 Personal history of malignant neoplasm of breast; Z86.73 Personal history of transient ischemic attack (TIA), and cerebral infarction without residual deficits
CPT/HCPCS: 83880; 84439; 86480; 87046; 87046-59; 94150; 97110-GP; 97116-GP; 97530-GP; A4371; G0378; J0885-EC; J2060; J2270; J2543; J2550; J3475; J3480; J3490; J7030; J7050; J7620; P9047; Q0092; Q0163

== ENCOUNTER 2019-09-05 21:41 | Emergency (ER) | payer OTHER ==
[~2019-09-05] VITALS: Ht 157.5 cm; Wt 49.0 kg
[~2019-09-05 21:41] MED LIST changes: +FUROSEMIDE20 MG; +OXYCODONE HYDROC5 M2
[2019-09-05 21:53] VITALS: Ht 157.5 cm; Wt 49.0 kg
[2019-09-06 00:17] VITALS: BP 174/64
== END 2019-09-06 00:17 | disposition home or self-care (01) ==
LOC: ED 21:41
DX: S42.211A Unspecified displaced fracture of surgical neck of right humerus, initial encounter for closed fracture (principal); F17.210 Nicotine dependence, cigarettes, uncomplicated; Z98.890 Other specified postprocedural states; Z85.3 Personal history of malignant neoplasm of breast; Z85.118 Personal history of other malignant neoplasm of bronchus and lung; Z88.5 Allergy status to narcotic agent; Z88.1 Allergy status to other antibiotic agents; Z88.0 Allergy status to penicillin; W01.0XXA Fall on same level from slipping, tripping and stumbling without subsequent striking against object, initial encounter; Y93.89 Activity, other specified; Y92.89 Other specified places as the place of occurrence of the external cause; Y99.8 Other external cause status
CPT/HCPCS: J2270; J2405; J3010; Q0092